=== PATIENT | female | born 1995 | race African-American/Black ===

== ENCOUNTER 2017-04-07 09:09 | Emergency (ER) | payer OTHER ==
[~2017-04-07] VITALS: Ht 170.2 cm; Wt 71.2 kg
[2017-04-07 09:16] VITALS: Ht 170.2 cm; Wt 71.2 kg
[2017-04-07 12:13] VITALS: BP 107/50
== END 2017-04-07 12:13 | disposition home or self-care (01) ==
LOC: ED 09:09
DX: N72 Inflammatory disease of cervix uteri (principal)
CPT/HCPCS: 87491; 87591; J0696; J2001

== ENCOUNTER 2017-09-15 01:58 | Inpatient (IN) | payer OTHER ==
[~2017-09-15] VITALS: Ht 167.6 cm; Wt 66.2 kg
[2017-09-15 02:05] VITALS: Ht 167.6 cm; Wt 66.2 kg
[2017-09-15] MEDS ORDERED: NEURONTIN600 MG PO (06:37)
[2017-09-15] MEDS ORDERED: ACETAMINOPHEN &1 TA1 PO (06:38)
[2017-09-15 06:49] LABS: UA SPECIFIC GRAVITY 1.025 (1.005-1.035); microscopic required? YES; urine erythrocyte NEGATIVE (NEGATIVE)
[2017-09-15 07:00] LABS: AMPHETAMINE QUAL UR NONE DETECTED (See below)
[2017-09-15 07:55] LABS: T3 TOTAL 1.29 ng/mL
[2017-09-15 07:56] LABS: FREE T4 1.19 ng/dL (0.76-1.46); FREE THYROXINE INDEX 2.7 ug/dL (1.4-4.5); T4(THYROXINE) 7.7 ug/dL (4.7-13.3)
[2017-09-15 08:02] LABS: CHOLESTEROL/HDL RATIO 2.7; MAGNESIUM 1.8 mg/dL (1.8-2.4); PHOSPHOROUS 4.3 mg/dL (2.5-4.9)
[2017-09-15 08:04] VITALS: BP 99/48
[2017-09-15 08:48] LABS: BASOPHIL % 0.4 % (0-2); PLATELET COUNT 182 x10^3mcL (130-400); RED CELL DISTRIBUTION WIDTH 13.3 % (11.5-14.5)
[2017-09-15 09:55] LABS: CALCIUM 8.7 mg/dL (8.5-10.1); CHLORIDE SERUM 104 mmol/L (98-107); CREATININE SERUM 0.5 mg/dL (0.6-1.0); GFR1 > 60 mL/min; GLUCOSE SERUM 94 mg/dL (74-106); POTASSIUM SERUM 3.8 mmol/L (3.5-5.1); SODIUM SERUM 139 mmol/L (136-145)
[2017-09-15 11:51] VITALS: BP 114/76
[2017-09-15 16:33] VITALS: BP 101/65
[2017-09-15 20:06] VITALS: BP 104/60
[2017-09-16 04:40] VITALS: BP 111/71
[2017-09-16 09:10] VITALS: BP 120/73
[2017-09-16 16:18] VITALS: BP 110/61
[2017-09-16 21:10] VITALS: BP 96/54
[2017-09-17 05:19] VITALS: BP 102/67
[2017-09-17 09:40] VITALS: BP 104/59
[2017-09-17 13:37] VITALS: BP 92/54
[2017-09-17 16:43] VITALS: BP 91/45
[2017-09-17 19:10] VITALS: BP 101/48
[2017-09-17 20:32] VITALS: BP 104/55
[2017-09-18 05:59] VITALS: BP 100/52
[2017-09-18 09:08] VITALS: BP 112/68
[2017-09-18 13:32] VITALS: BP 100/59
[2017-09-18 17:16] VITALS: BP 102/48
[2017-09-18 21:04] VITALS: BP 100/60
[2017-09-19 05:40] VITALS: BP 102/56
[2017-09-19 10:00] VITALS: BP 101/51
[2017-09-19] MEDS ORDERED: DIF100 PO (12:13)
[2017-09-19] MEDS ORDERED: ZAN4 PO (12:14)
[2017-09-19] MEDS ORDERED: MSC30 PO (12:14)
[2017-09-19] MEDS ORDERED: ROX5 PO (12:15)
[2017-09-19 14:12] VITALS: BP 101/51
[2017-09-19 17:32] VITALS: BP 105/72
[2017-09-19 21:08] VITALS: BP 107/68
[2017-09-20 05:34] VITALS: BP 102/62
[2017-09-20 09:25] VITALS: BP 101/53
== END 2017-09-20 15:12 | disposition home or self-care (01) | DRG 347 ==
LOC: ED 01:58 → DU 06:26 → EDBEDREQSVC 06:29 → DU 07:55
PROVIDERS: Family Medicine
DX: M54.89 Other dorsalgia (principal); D64.9 Anemia, unspecified; F12.10 Cannabis abuse, uncomplicated; Z79.891 Long term (current) use of opiate analgesic; M79.602 Pain in left arm
CPT/HCPCS: 83880; 84439; J1885; J2270; J2800; J3490; J7030; Q0092; Q0162; Q9967

== ENCOUNTER 2018-01-27 13:13 | Emergency (ER) | payer OTHER ==
[~2018-01-27] VITALS: Ht 170.2 cm; Wt 66.2 kg
[~2018-01-27 13:13] MED LIST: ACETAMINOPHEN &1 TA1 PO; DIF100 PO; MSC30 PO; NEURONTIN600 MG PO; ROX5 PO; ZAN4 PO
[2018-01-27 13:41] VITALS: BP 105/55; Ht 170.2 cm; Wt 66.2 kg
== END 2018-01-27 14:16 | disposition home or self-care (01) ==
LOC: ED 13:13
DX: B37.3 Candidiasis of vulva and vagina (principal); H00.016 Hordeolum externum left eye, unspecified eyelid; Z98.890 Other specified postprocedural states
CPT/HCPCS: 87491; 87591

== ENCOUNTER 2018-05-16 18:39 | Emergency (ER) | payer OTHER | END 2018-05-16 21:28 | disposition home or self-care (01) | LOC: ED 18:39 ==

== ENCOUNTER 2018-06-01 21:24 | Emergency (ER) | payer OTHER ==
[~2018-06-01] VITALS: Ht 170.2 cm; Wt 62.1 kg
[2018-06-01 21:28] VITALS: Ht 170.2 cm; Wt 62.1 kg
[2018-06-01 22:17] VITALS: BP 110/62
== END 2018-06-01 22:17 | disposition home or self-care (01) ==
LOC: ED 21:24
DX: B37.3 Candidiasis of vulva and vagina (principal)

== ENCOUNTER 2018-10-24 15:57 | Emergency (ER) | payer OTHER ==
[~2018-10-24] VITALS: Ht 170.2 cm; Wt 65.3 kg
[2018-10-24 16:20] VITALS: BP 100/51; Ht 170.2 cm; Wt 65.3 kg
== END 2018-10-24 18:05 | disposition home or self-care (01) ==
LOC: ED 15:57
DX: B37.3 Candidiasis of vulva and vagina (principal)
CPT/HCPCS: 87491; 87591

== ENCOUNTER 2019-01-27 13:25 | Emergency (ER) | payer OTHER ==
[~2019-01-27] VITALS: Ht 170.2 cm; Wt 64.4 kg
[2019-01-27 13:42] VITALS: BP 105/84; Ht 170.2 cm; Wt 64.4 kg
== END 2019-01-27 15:05 | disposition home or self-care (01) ==
LOC: ED 13:25
DX: Z32.01 Encounter for pregnancy test, result positive (principal)

== ENCOUNTER 2019-06-29 00:32 | Emergency (ER) | payer OTHER ==
[~2019-06-29] VITALS: Ht 170.2 cm; Wt 69.9 kg
[2019-06-29 00:46] VITALS: Ht 170.2 cm; Wt 69.9 kg
[2019-06-29 02:29] VITALS: BP 102/54
== END 2019-06-29 02:29 | disposition home or self-care (01) ==
LOC: ED 00:32
DX: O26.892 Other specified pregnancy related conditions, second trimester (principal); M54.6 Pain in thoracic spine; Z98.890 Other specified postprocedural states; Z3A.24 24 weeks gestation of pregnancy; X50.0XXA Overexertion from strenuous movement or load, initial encounter; Y93.89 Activity, other specified; Y92.89 Other specified places as the place of occurrence of the external cause; Y99.8 Other external cause status